=== PATIENT | female | born 1960 | race Caucasian/White ===

== ENCOUNTER 2018-01-14 13:21 | Emergency (ER) | payer OTHER ==
[~2018-01-14] VITALS: Ht 157.5 cm; Wt 59.0 kg
[2018-01-14 14:06] LABS: ABSOLUTE BASOPHIL COUNT 0 /CUMM (0.0-0.2); ABSOLUTE EOSINOPHIL COUNT 0.2 /CUMM (0.0-0.7); ABSOLUTE GRANULOCYTE CT 6.8 /CUMM (1.4-6.5); ABSOLUTE LYMPH COUNT 1.6 /CUMM (1.2-3.4); ABSOLUTE MONOCYTE COUNT 0.9 /CUMM (0.10-0.60); BASOPHIL % 0.3 % (0.0-2.0); EOSINOPHIL % 1.7 % (0-5); GRANULOCYTE % 70.9 % (42.2-75.2); HEMATOCRIT 34.5 % (37-47); MEAN CORPUSCULAR HGB CONC 34.5 G/DL (33.0-37.0); MEAN CORPUSCULAR VOLUME 89.8 FL (81.0-99.0); MEAN PLATELET VOLUME 8.1 FL (7.4-10.4); PLATELET COUNT 242 /CUMM (130-400); RED BLOOD CELL CT 3.84 /CUMM (4.20-5.40); WHITE BLOOD CELL COUNT 9.6 /CUMM (4.8-10.8)
--- NOTE | 2018-01-14 15:59 | ED GI/GU/ABDOMINAL COMPLAINT ---
History of Present Illness General Chief Complaint: Female Urogenital Problems Stated Complaint: ?LEFT OVARIAN CYST PER PT LOWER PELVIC PAIN Source: patient Exam Limitations: no limitations Vital Signs & Intake/Output Vital Signs & Intake/Output Vital Signs Date Time Temp Pulse Resp B/P B/P Pulse O2 O2 Flow FiO2 Mean Ox Delivery Rate 01/15 1928 98.5 89 18 135/71 98 Room Air 01/14 1721 100.4 90 18 143/63 96 Room Air Room Air 01/14 1331 98.0 95 16 134/75 94 Room Air Allergies Coded Allergies: Penicillins (UNKNOWN 01/14/18) sulfamethoxazole (From [facility]) (GI UPSET 01/14/18) trimethoprim (From [facility]ACTRIM) (GI UPSET 01/14/18) Reconcile Medications Ciprofloxacin HCl (Cipro) 500 MG TABLET 1 TAB PO BID PRN DIVERTICULITIS Metronidazole (Flagyl) 500 MG TABLET 1 TAB PO TID DIVERTICULITIS Triage Note: PT TO ED FOR L SIDED PELVIC PAIN STARTING SATURDAY. REPORTS HX OF SMALL OVARIAN CYST "IT USUALLY GOES AWAY WHEN I HAVE MY PERIOD BUT NOT THIS TIME" DX WITH UTI "A COUPLE WEEKS AGO" DENIES URINARY SYMPTOMS AT THIS TIME BUT REPORTS "FEELING THE URGE TO GO BUT I'M NOT GETTING ALOT OUT" DENIES N/V/D. +CHILLS LAST PM. Triage Nurses Notes Reviewed? yes ? N Is pt currently ? No Duration: constant Timing: recent history Quality/Severity: moderate Severity Numbers: 5 Location: left lower quadrant Radiation: no radiation Activities at Onset: none HPI: Patient is a 57-year-old female with past medical history hyperlipidemia and asthma who presents emergency room with concerns of a three-day history of generalized abdominal pain initially however pain now is localized to left lower quadrant. Denies any change in symptoms of by mouth intake however has had decreased amounts denies any fever chills nausea vomiting dysuria hematuria vaginal bleeding or discharge back pain chest pain shortness of breath. Denies any change in bowel production no blood no melena (Allan Ramirez) Past History Travel History Traveled to [place] past 21 day No Medical History Any Pertinent Medical History? see below for history Neurological: NONE EENT: NONE Cardiovascular: hyperlipidemia Respiratory: asthma Gastrointestinal: NONE Hepatic: NONE Renal: NONE Musculoskeletal: NONE Psychiatric: NONE Endocrine: NONE DIRECT SUPPORT PROFESSIONAL/Reproductive: REMOVAL OF PRE-CANCEROUS GROWTH FROM VAG AREA Surgical History Surgical History: non-contributory Psychosocial History What is your primary language Slovenian Tobacco Use: Never used Family History Hx Contributory? No (Allan Ramirez) Review of Systems Review of Systems Constitutional: Reports: no symptoms. EENTM: Reports: no symptoms. Respiratory: Reports: no symptoms. Cardiovascular: Reports: no symptoms. GI: Reports: see HPI, abdominal pain. Genitourinary: Reports: no symptoms. Musculoskeletal: Reports: no symptoms. Skin: Reports: no symptoms. Neurological/Psychological: Reports: no symptoms. Hematologic/Endocrine: Reports: no symptoms. Immunologic/Allergic: Reports: no symptoms. All Other Systems: Reviewed and Negative (Allan Ramirez) Physical Exam Physical Exam General Appearance: no apparent distress, alert, comfortable Head: atraumatic Eyes: Bilateral: normal appearance. Ears, Nose, Throat, Mouth: moist mucous membrane Neck: normal inspection Respiratory: normal breath sounds, chest non-tender Cardiovascular: regular rate/rhythm Gastrointestinal: normal bowel sounds, non-tender, LLQ PAIN NO REBOUND TENDERNESS Extremities: normal range of motion Neurologic/Psych: no motor/sensory deficits, awake, alert Skin: intact, normal color, warm/dry Core Measures ACS in differential dx? No Sepsis Present: No Sepsis Focused Exam Completed? No (Allan Ramirez) Progress Differential Diagnosis: AAA, AMI, appendicitis, biliary colic, bowel obstruction , colon cancer, cholecystitis, diverticulitis, endometritis, esophageal varices, gastritis, hepatitis, hernia, hemorrhoids, ischemic bowel, inflamm bowel dis, kidney stone, ovarian cyst, ovarian torsion, pancreatitis, PID/cervicitis, peptic ulcer, PUD/GERD, perforated viscous, SBO, UTI/pyelo Plan of Care: Orders Procedure Date/time Status URINALYSIS 01/14 1331 Complete LIPASE 01/14 1331 Complete COMPREHENSIVE METABOLIC PANEL 01/14 1331 Complete CBC WITHOUT DIFFERENTIAL 01/14 1331 Complete Laboratory Tests 01/14/18 1353: Urine Color YEL, Urine Clarity CLEAR, Urine pH 6.0, Ur Specific [place] <= 1.005 , Urine Protein NEG, Urine Ketones NEG, Urine Nitrite NEG, Urine Bilirubin NEG, Urine Urobilinogen 0.2, Ur Leukocyte Esterase NEG, Ur Microscopic SEDIMENT EXAMINED, Urine RBC FEW H, Urine WBC RARE, Ur Epithelial Cells FEW, Urine Hemoglobin TRACE-INTACT, Urine Glucose NEG 01/14/18 1348: Anion Gap 12, Estimated GFR > 60, BUN/Creatinine Ratio 34.0 H, Glucose 105 H, Calcium 9.4, Total Bilirubin 0.5, AST 33, ALT 43, Alkaline Phosphatase 57, Total Protein 7.1, Albumin 4.3, Globulin 2.8, Albumin/Globulin Ratio 1.5, Lipase 159, CBC w Diff NO MAN DIFF REQ, RBC 3.84 L, MCV 89.8, MCH 31.0, MCHC 34.5, RDW 13.0 , MPV 8.1, Gran % 70.9, Lymphocytes % 17.2 L, Monocytes % 9.9 H, Eosinophils % 1.7, Basophils % 0.3, Absolute Granulocytes 6.8 H, Absolute Lymphocytes 1.6, Absolute Monocytes 0.9 H, Absolute Eosinophils 0.2, Absolute Basophils 0 Patient upon initial presentation is resting comfortably bedside no apparent distress patient did note to have concerns of fever however this was resolved with Toradol, patient is able tolerate by mouth patient does have, located diverticulitis after CT scan was resulted patient upon discharge looks well no apparent distress and will comply with discharge directions and had no questions. Discussed with patient that if symptoms worsen to return to the emergency room and she will comply Diagnostic Imaging: Viewed by Me: CT Scan. Radiology Impression: acute abnormality Initial ED EKG: none Comments: PATIENT: WHITLEY BELLO PRESENT AGE: 57 PATIENT ACCOUNT NO: [id number] : 60 LOCATION: [facility] ORDERING PHYSICIAN: Allan HINTON SERVICE DATE: 01/14/18 EXAM TYPE: CAT - CT ABD & PELVIS W IV CONTRAST EXAMINATION: CT ABDOMEN AND PELVIS WITH CONTRAST CLINICAL INFORMATION: Left lower quadrant pain. COMPARISON: None. TECHNIQUE: Multidetector volumetric imaging was performed of the abdomen and pelvis following IV administration of 95 mL of Optiray 320 intravenous contrast. Sagittal and coronal reformatted images were obtained on the technologist's workstation. DLP: 257.77 mGy-cm FINDINGS: LUNG BASES: The visualized lung bases are unremarkable. LIVER, GALLBLADDER, AND BILIARY TREE: 2 peripherally enhancing centrally hypodense lesions within the liver measuring 2.3 x 1.9 cm within hepatic segment 7 at the dome and measuring 3.7 x 2.8 cm within hepatic segment 7 more inferiorly. There is no bulging of the liver contour due to these lesions. No other focal hepatic lesions are clearly identified. The liver is normal in contour. No intrahepatic biliary dilatation. The gallbladder is unremarkable with no evidence of radiopaque gallstones, gallbladder wall thickening, or obvious pericholecystic inflammatory changes. PANCREAS: Unremarkable. SPLEEN: Unremarkable. ADRENAL GLANDS: Unremarkable. KIDNEYS AND URETERS: The kidneys are normal in size, shape, and attenuation. No hydronephrosis, hydroureter, or calculi seen. No perinephric stranding. BLADDER: Unremarkable. GASTROINTESTINAL TRACT: Diverticulosis of the sigmoid colon. There is a focal area of thickening involving the colon at the junction of the descending colon and sigmoid colon. There is an inflamed diverticulum identified. No evidence of bowel perforation or adjacent fluid collection to suggest abscess. No bowel obstruction. The appendix is unremarkable. ABDOMINAL WALL: No significant abdominal wall hernia. LYMPH NODES: No evidence of lymphadenopathy within the abdomen or pelvis by CT criteria. VASCULAR: Unremarkable. PELVIC VISCERA: Unremarkable. OSSEOUS STRUCTURES: Unremarkable. IMPRESSION: 1. Focal area of bowel wall thickening with pericolonic inflammatory changes and an inflamed-appearing diverticulum. This is consistent with acute uncomplicated diverticulitis, however followup is recommended to ensure complete resolution and exclusion of an underlying neoplastic process. 2. There are 2 enhancing lesions seen within the liver with appearance most consistent with hemangiomas. This could be confirmed with a liver MRI, especially if the patient is considered high risk. Followup should be based upon clinical assessment. DICTATED BY: Chrissy Nguyen MD DATE/TIME DICTATED:01/14/181818 (Allan Ramirez) Departure Departure Disposition: HOME OR SELF CARE Condition: Stable Clinical Impression Primary Impression: Diverticulitis Referrals: Franklin YU,Sandro Posada MD,Jerald Nicole (PCP/Family) Additional Instructions: As discussed if symptoms worsen or she develop vomiting or worsening pain return to the emergency room, begin Tylenol or Motrin for pain begin the prescription ciprofloxacin and Flagyl for your symptoms for the full course, prescription is waiting at [facility] follow-up tomorrow and establish biomass facilitator Dr. Reid. Begin a 48 hour regimen of clear liquid bland diet to rest YOUR bowels Departure Forms: Customer Survey General Discharge Information Prescriptions: Current Visit Scripts Metronidazole (Flagyl) 1 TAB PO TID #30 TAB Ciprofloxacin HCl (Cipro) 1 TAB PO BID PRN DIVERTICULITIS #20 TAB (Allan Ramirez) PA/DAYCARE MANAGER Co-Sign Statement Statement: ED Attending supervision documentation- [] I saw and evaluated the patient. I have also reviewed all the pertinent lab results and diagnostic results. I agree with the findings and the plan of care as documented in the PA's/DAYCARE MANAGER's documentation. [x] I have reviewed the ED Record and agree with the PA's/DAYCARE MANAGER's documentation. [] Additions or exceptions (if any) to the PAs/DAYCARE MANAGER's note and plan are summarized below: [] (Letty YU,[facility])
--- NOTE | 2018-01-14 16:48 | ULTRASOUND REPORT ---
EXAMINATION: ULTRASOUND PELVIC, COMPLETE CLINICAL INFORMATION: Left pain in pelvis. COMPARISON: None. TECHNIQUE: Transvaginal: Used to better visualize pelvic structures Transabdominal: Not adequate for visualization. Spectral Doppler and color Doppler exam was utilized. LMP: Uncertain FINDINGS: UTERUS: Unremarkable. The uterus measures 5.7 x 2.2 x 3.6 cm. The cervical length is 1.4 cm. The endometrial thickness 0.2 cm ADNEXA: Ovarian vascularity:Doppler demonstrates both arterial and venous vascular flow in the right and left ovary. No evidence of ovarian torsion. Right Ovary: 1.2 x 1 x 0.7 cm. Volume 0.5 mL Left Ovary: 1.6 x 1 x 1.2 cm. Volume 0.9 mL Cul-de-sac: Small volume of fluid in the cul-de-sac. IMPRESSION: Unremarkable examination.
--- NOTE | 2018-01-14 19:00 | CT SCAN REPORT ---
EXAMINATION: CT ABDOMEN AND PELVIS WITH CONTRAST CLINICAL INFORMATION: Left lower quadrant pain. COMPARISON: None. TECHNIQUE: Multidetector volumetric imaging was performed of the abdomen and pelvis following IV administration of 95 mL of Optiray 320 intravenous contrast. Sagittal and coronal reformatted images were obtained on the technologist's workstation. DLP: 257.77 mGy-cm FINDINGS: LUNG BASES: The visualized lung bases are unremarkable. LIVER, GALLBLADDER, AND BILIARY TREE: 2 peripherally enhancing centrally hypodense lesions within the liver measuring 2.3 x 1.9 cm within hepatic segment 7 at the dome and measuring 3.7 x 2.8 cm within hepatic segment 7 more inferiorly. There is no bulging of the liver contour due to these lesions. No other focal hepatic lesions are clearly identified. The liver is normal in contour. No intrahepatic biliary dilatation. The gallbladder is unremarkable with no evidence of radiopaque gallstones, gallbladder wall thickening, or obvious pericholecystic inflammatory changes. PANCREAS: Unremarkable. SPLEEN: Unremarkable. ADRENAL GLANDS: Unremarkable. KIDNEYS AND URETERS: The kidneys are normal in size, shape, and attenuation. No hydronephrosis, hydroureter, or calculi seen. No perinephric stranding. BLADDER: Unremarkable. GASTROINTESTINAL TRACT: Diverticulosis of the sigmoid colon. There is a focal area of thickening involving the colon at the junction of the descending colon and sigmoid colon. There is an inflamed diverticulum identified. No evidence of bowel perforation or adjacent fluid collection to suggest abscess. No bowel obstruction. The appendix is unremarkable. ABDOMINAL WALL: No significant abdominal wall hernia. LYMPH NODES: No evidence of lymphadenopathy within the abdomen or pelvis by CT criteria. VASCULAR: Unremarkable. PELVIC VISCERA: Unremarkable. OSSEOUS STRUCTURES: Unremarkable. IMPRESSION: 1. Focal area of bowel wall thickening with pericolonic inflammatory changes and an inflamed-appearing diverticulum. This is consistent with acute uncomplicated diverticulitis, however followup is recommended to ensure complete resolution and exclusion of an underlying neoplastic process. 2. There are 2 enhancing lesions seen within the liver with appearance most consistent with hemangiomas. This could be confirmed with a liver MRI, especially if the patient is considered high risk. Followup should be based upon clinical assessment.
[2018-01-14] MEDS ORDERED: CIPRO500 M1 PO (19:08)
[2018-01-14] MEDS ORDERED: FLAGYL500 MG PO (19:08)
[2018-01-14 19:28] VITALS: BP 135/71
== END 2018-01-14 19:59 ==
LOC: ERH 13:21
PROVIDERS: Physician Assistant Medical
DX: K57.92 Diverticulitis of intestine, part unspecified, without perforation or abscess without bleeding (principal); R10.84 Generalized abdominal pain
CPT/HCPCS: 74177; 81001; 96374; J1885